=== PATIENT | female | born 1980 | race Caucasian/White ===

== ENCOUNTER 2016-06-06 19:03 | Emergency (ER) | payer MEDICAID, OTHER ==
[~2016-06-06] VITALS: Ht 160 cm; Wt 68.9 kg
[~2016-06-06 19:03] MED LIST: FLEXERIL PO; MONT10TA22 PO; NORCO PO; OMEP20TA20 PO
[2016-06-06 19:38] LABS: *BILIRUBIN,URIN NEGATIVE (NEGATIVE); *BLOOD, URINE 3+ (NEGATIVE); *CLARITY,URINE SLIGHTLY CLOUDY (CLEAR); *KETONES,URINE TRACE (NEGATIVE); *PROTEIN,URINE 1+ (NEGATIVE); LEUKOCYTE ESTERASE ,URINE 1+ (NEGATIVE); UGLUCOSE TRACE (NEGATIVE)
[2016-06-06 19:40] LABS: *URINE HCG, QUAL NEGATIVE (NEGATIVE)
[2016-06-06 19:51] LABS: *COLOR,URINE ORANGE (YELLOW); NITRITE, URINE POSITIVE (NEGATIVE)
[2016-06-06 19:53] LABS: BACTERIA,URINE FEW /HPF (NONE SEEN); MUCUS,URINE MODERATE /LPF (0-FEW); RBC,URINE 20-50 /HPF (0-3); SQUAMOUS EPITHELIAL CELL,UR FEW /HPF (NONE SEEN); WBC,URINE 20-50 /HPF (0-3)
[2016-06-06] MEDS ORDERED: IBUPROFEN 800 MG TABLET PO ONE (20:15)
[2016-06-06] MEDS ORDERED: AZITHROMYCIN 250 MG TABLET PO ONE (20:15)
[2016-06-06] MEDS ORDERED: ONDANSETRON ODT 4 MG TAB.RAPDIS SL ONE (20:15)
[2016-06-06] MEDS ORDERED: CEFTRIAXONE 500 MG VIAL IM ONE (20:15)
[2016-06-06] MEDS ORDERED: CEFTRIAXONE 500 MG VIAL ONE (20:30)
[2016-06-06] MEDS ORDERED: AZITHROMYCIN 250 MG TABLET ONE (20:30)
[2016-06-06] MEDS ORDERED: IBUPROFEN 800 MG TABLET ONE (20:30)
[2016-06-06] MEDS ORDERED: ONDANSETRON ODT 4 MG TAB.RAPDIS ONE (20:30)
[2016-06-06] MEDS ORDERED: HYDROCODONE/APAP 10-325 MG TABLET PO ONE (21:00)
--- NOTE | 2016-06-06 21:06 | NUR ---
Patient discharged to home in stable conditon. Written and verbal after care instructions given. Patient verbalizes understanding of instructions. ambulated from ER with stable gait. All belongins with patient.
[2016-06-06 21:07] VITALS: BP 131/81
--- NOTE | 2016-06-06 21:07 | NUR ---
Instructed not to drive. Patient will be driven home in private vehicle by family.
[2016-06-06] MEDS ORDERED: HYDROCODONE/APAP 10-325 MG TABLET ONE (21:11)
[2016-06-09 07:07] LABS: *CHLAMYDIA NAA Negative (Negative); *GC NAA Negative (Negative); *TRIC.VAG. NAA Positive (Negative)
== END 2016-06-06 21:08 | disposition home or self-care (01) ==
LOC: ER 19:03
DX: N10 Acute pyelonephritis (principal); Z88.8 Allergy status to other drugs, medicaments and biological substances; Z91.018 Allergy to other foods
CPT/HCPCS: 76770; 81001; 84703; 87086; 87491; 96372; 99285; A4663; J0696; Q0144; Q0162

== ENCOUNTER 2016-06-27 20:46 | Emergency (ER) | payer OTHER ==
[~2016-06-27] VITALS: Ht 165.1 cm; Wt 63.5 kg
[2016-06-27 20:59] LABS: *BILIRUBIN,URIN NEGATIVE (NEGATIVE); *BLOOD, URINE NEGATIVE (NEGATIVE); *CLARITY,URINE SLIGHTLY CLOUDY (CLEAR); *COLOR,URINE YELLOW (YELLOW); *KETONES,URINE NEGATIVE (NEGATIVE); *PROTEIN,URINE NEGATIVE (NEGATIVE); *UROBILINOGEN,URINE 0.2 E.U./dl (NORMAL); LEUKOCYTE ESTERASE ,URINE 1+ (NEGATIVE); NITRITE, URINE NEGATIVE (NEGATIVE); UGLUCOSE NEGATIVE (NEGATIVE)
[2016-06-27 21:03] LABS: *URINE HCG, QUAL NEGATIVE (NEGATIVE)
[2016-06-27 21:11] LABS: BACTERIA,URINE FEW /HPF (NONE SEEN); MUCUS,URINE MANY /LPF (0-FEW); RBC,URINE 0-3 /HPF (0-3); SQUAMOUS EPITHELIAL CELL,UR FEW /HPF (NONE SEEN); WBC,URINE 50-80 /HPF (0-3)
[2016-06-27] MEDS: HYDROCODONE/APAP 10-325 MG TABLET PO ONE (22:12)
[2016-06-27] MEDS: LEVOFLOXACIN 750 MG TABLET PO ONE (22:13)
--- NOTE | 2016-06-27 22:14 | NUR ---
Patient discharged to home in stable conditon. Written and verbal after care instructions given. Patient verbalizes understanding of instructions.
[2016-06-27] MEDS ORDERED: LEVOFLOXACIN 750 MG TABLET ONE (22:18)
[2016-06-27] MEDS ORDERED: HYDROCODONE/APAP 10-325 MG TABLET ONE (22:18)
== END 2016-06-27 22:14 | disposition home or self-care (01) ==
LOC: ER 20:46
DX: N39.0 Urinary tract infection, site not specified (principal)
CPT/HCPCS: 84703; A4663

== ENCOUNTER 2016-07-07 11:00 | Emergency (ER) | payer OTHER ==
[~2016-07-07] VITALS: Ht 167.6 cm; Wt 68.0 kg
[2016-07-07] MEDS ORDERED: PHENAZOPYRIDINE HCL 100 MG TABLET PO ONE (12:00)
[2016-07-07 12:01] LABS: *BILIRUBIN,URIN NEGATIVE (NEGATIVE); *BLOOD, URINE 1+ (NEGATIVE); *CLARITY,URINE CLEAR (CLEAR); *COLOR,URINE YELLOW (YELLOW); *KETONES,URINE NEGATIVE (NEGATIVE); *PROTEIN,URINE NEGATIVE (NEGATIVE); *UROBILINOGEN,URINE 0.2 E.U./dl (NORMAL); LEUKOCYTE ESTERASE ,URINE 3+ (NEGATIVE); NITRITE, URINE NEGATIVE (NEGATIVE); UGLUCOSE NEGATIVE (NEGATIVE)
[2016-07-07 12:03] LABS: *URINE HCG, QUAL NEGATIVE (NEGATIVE)
[2016-07-07 12:11] LABS: BACTERIA,URINE FEW /HPF (NONE SEEN); SQUAMOUS EPITHELIAL CELL,UR FEW /HPF (NONE SEEN); TRANSITIONAL EPI CELLS,URINE FEW /LPF (NONE SEEN)
[2016-07-07 12:12] LABS: WBC,URINE 20-50 /HPF (0-3)
[2016-07-07] MEDS ORDERED: PHENAZOPYRIDINE HCL 100 MG TABLET ONE (12:15)
[2016-07-07] MEDS ORDERED: ONDANSETRON ODT 4 MG TAB.RAPDIS SL ONE (12:30)
[2016-07-07] MEDS ORDERED: CEPHALEXIN MONOHYDRATE 500 MG CAPSULE PO ONE (12:30)
[2016-07-07] MEDS ORDERED: IBUPROFEN 800 MG TABLET PO ONE (12:30)
[2016-07-07] MEDS ORDERED: CEPHALEXIN MONOHYDRATE 500 MG CAPSULE ONE (12:37)
[2016-07-07] MEDS ORDERED: IBUPROFEN 800 MG TABLET ONE (12:37)
[2016-07-07] MEDS ORDERED: ONDANSETRON ODT 4 MG TAB.RAPDIS ONE (12:37)
[2016-07-07] MEDS ORDERED: MORPHINE SULFATE 2 MG/1 ML DISP.SYRIN IV ONE (13:00)
[2016-07-07] MEDS ORDERED: IV NORMAL SALINE 1000 ML BAG IV ONE (13:00)
[2016-07-07] MEDS ORDERED: CEFTRIAXONE 1 G in IV DEXTROSE 5% 50 ML IV ONE (13:00)
[2016-07-07] MEDS ORDERED: MORPHINE SULFATE 2 MG/1 ML DISP.SYRIN ONE (13:11)
[2016-07-07] MEDS ORDERED: CEFTRIAXONE 1 G VIAL ONE (13:12)
--- NOTE | 2016-07-07 13:58 | NUR ---
Patient discharged to home in stable conditon. Written and verbal after care instructions given. Patient verbalizes understanding of instructions.PT WALKS IN STEADY , PT NOT DRIVING
[2016-07-07 13:59] VITALS: BP 119/81
[2016-07-10 00:12] LABS: *CHLAMYDIA NAA Negative (Negative); *GC NAA Negative (Negative); *TRIC.VAG. NAA Positive (Negative)
== END 2016-07-07 14:00 | disposition home or self-care (01) ==
LOC: ER 11:00
DX: N10 Acute pyelonephritis (principal); Z88.8 Allergy status to other drugs, medicaments and biological substances; Z91.018 Allergy to other foods
CPT/HCPCS: 84703; 87086; 87491; A4663; J0696; J2270; J7030; Q0162

== ENCOUNTER 2016-07-09 19:44 | Inpatient (IN) | payer OTHER ==
[~2016-07-09] VITALS: Ht 160 cm; Wt 68.0 kg
[2016-07-09] MEDS ORDERED: HYDR-552 PO (20:30)
[2016-07-09] MEDS ORDERED: CEPH500C2 PO (20:30)
[2016-07-09] MEDS ORDERED: PHEN-705 PO (20:30)
--- NOTE | 2016-07-09 20:45 | NUR ---
Sent urine to lab.Physical assessment done.
[2016-07-09 20:56] LABS: *BLOOD, URINE 3+ (NEGATIVE); *CLARITY,URINE SLIGHTLY CLOUDY (CLEAR); *COLOR,URINE ORANGE (YELLOW); *KETONES,URINE 1+ (NEGATIVE); *PROTEIN,URINE 2+ (NEGATIVE); LEUKOCYTE ESTERASE ,URINE 3+ (NEGATIVE); UGLUCOSE TRACE (NEGATIVE)
[2016-07-09 20:59] LABS: *BILIRUBIN,URIN 1+ (NEGATIVE); NITRITE, URINE POSITIVE (NEGATIVE)
[2016-07-09] MEDS ORDERED: CEFTRIAXONE 1 G in IV DEXTROSE 5% 50 ML IV ONE (21:00)
[2016-07-09] MEDS ORDERED: IV NORMAL SALINE 1000 ML BAG IV ONE (21:00)
[2016-07-09 21:01] LABS: *URINE HCG, QUAL NEGATIVE (NEGATIVE)
[2016-07-09 21:03] LABS: BACTERIA,URINE FEW /HPF (NONE SEEN); RBC,URINE 50-80 /HPF (0-3); SQUAMOUS EPITHELIAL CELL,UR FEW /HPF (NONE SEEN)
--- NOTE | 2016-07-09 21:05 | NUR ---
Came from triage for UTI symptoms, pt stated that she had this symptoms since february 2016. She was just here last Friday for same problem. She was give antibiotics to take home but it seems not working, she was advice to come back for further symptoms. Seen by
[2016-07-09 21:10] LABS: BASOPHILS % (AUTO) 0.4 % (0.0-2.0); EOSINOPHILS # (AUTO) 0.1 K/uL (0.0-0.7); EOSINOPHILS % (AUTO) 1.7 % (0.0-7.0); HEMATOCRIT 34.6 % (37-47); HEMOGLOBIN 12.1 G/DL (12.0-16.0); LYMPHOCYTES # (AUTO) 2.4 K/UL (0.8-4.8); MEAN CORPUSCULAR HEMOGLOBIN 29.7 UUG (27.0-31.0); MEAN CORPUSCULAR HGB CONC 35 g/dL (32.0-37.0); MEAN CORPUSCULAR VOLUME 84.8 FL (81.0-99.0); MONOCYTES # (AUTO) 0.2 K/UL (0.1-1.30); MONOCYTES % (AUTO) 2.7 % (0.0-11.0); NEUTROPHILS # (AUTO) 6.1 K/UL (1.8-8.9); NEUTROPHILS % (AUTO) 68.2 % (38.5-71.5); PLATELET COUNT (AUTO) 338 K/UL (150-450); RED BLOOD CELL COUNT(AUTO) 4.08 MIL/UL (4.2-5.4); RED CELL DISTRIBUTION WIDTH 12.2 % (11.5-14.5); WHITE BLOOD COUNT (AUTO) 8.8 K/UL (4.0-11.2)
[2016-07-09 21:26] LABS: CREATININE 0.9 mg/dL (0.6-1.3); POTASSIUM 3.6 mmol/L (3.5-5.1)
[2016-07-09 21:31] LABS: ALBUMIN 4.4 g/dL (3.4-5.0); BILIRUBIN,DIRECT 0.1 mg/dL (0.0-0.2); BILIRUBIN,TOTAL 0.3 mg/dL (0.2-1.0); TOTAL PROTEIN, SERUM 8.2 g/dL (6.4-8.2)
[2016-07-09] MEDS ORDERED: IV NORMAL SALINE 250 ML IV ONE (21:40)
[2016-07-09] MEDS ORDERED: NORMAL SALINE FLUSH 10 ML DISP.SYRIN ONE (21:40)
[2016-07-09] MEDS ORDERED: IOHEXOL 300MG/ML 100 ML INFUS..BTL ONE (21:40)
[2016-07-09] MEDS ORDERED: CEFTRIAXONE 1 G VIAL ONE (21:58)
[2016-07-09] MEDS ORDERED: MORPHINE SULFATE 4 MG/1 ML DISP.SYRIN IV ONE (22:00)
[2016-07-09] MEDS ORDERED: KETOROLAC TROMETHAMINE 15 MG INJ IVP ONE (22:00)
--- NOTE | 2016-07-09 22:00 | NUR ---
Signed consent for CT of abdomen/Pelvis.
--- NOTE | 2016-07-09 22:10 | NUR ---
Left for CT
[2016-07-09] MEDS ORDERED: KETOROLAC TROMETHAMINE 15 MG INJ ONE (22:12)
[2016-07-09] MEDS ORDERED: MORPHINE SULFATE 4 MG/1 ML DISP.SYRIN ONE (22:13)
--- NOTE | 2016-07-09 22:25 | NUR ---
Came back for CT
--- NOTE | 2016-07-10 01:20 | NUR ---
Report to [facility]
[2016-07-10] MEDS ORDERED: CEFTRIAXONE 1 G in IV DEXTROSE 5% 50 ML IV SCH (01:30)
[2016-07-10] MEDS ORDERED: Z GUARD REMEDY PASTE 57 GM TUBE TOP PRN (01:30)
[2016-07-10] MEDS ORDERED: ACETAMINOPHEN 325 MG TABLET PO PRN (01:30)
[2016-07-10] MEDS ORDERED: MAGNESIUM HYDROXIDE 30 ML LIQUID UDC PO PRN (01:30)
[2016-07-10] MEDS ORDERED: HYDROCODONE/APAP 5-325MG TABLET PO PRN (01:30)
--- NOTE | 2016-07-10 01:30 | NUR ---
Transferred to Med surg room 203 via wheelchair w/ RN.
--- NOTE | 2016-07-10 02:00 | NUR ---
ADMITTED ALERTX4 PLINED O NAUSEA,ORIENTED TO FLOOR,IV STARTED ON LEFT ANTE CUBITAL GAUGE 20.COMPLAINED OF NAUSEA,ZOFRAN IVP GIVEN.
[2016-07-10] MEDS: IV 1/2NS 1000 ML 1,000 ML IV PRN ×3 (02:56→20:36)
[2016-07-10] MEDS: ONDANSETRON 4 MG/2 ML VIAL IV PRN (03:11)
[2016-07-10] MEDS ORDERED: ONDANSETRON 4 MG/2 ML VIAL ONE (03:21)
[2016-07-10 04:43] VITALS: BP 96/56
[2016-07-10] MEDS ORDERED: KETOROLAC TROMETHAMINE 15 MG INJ IVP ONE ×2 (06:30→13:45)
[2016-07-10] MEDS ORDERED: KETOROLAC TROMETHAMINE 15 MG INJ ONE (06:36)
--- NOTE | 2016-07-10 06:56 | NUR ---
COMPLAINED OF ABDOMINAL PAIN,REFUSED [facility] WANTS TORADOL CALLED DR TURNER AND ORDERED TORADOL X1IVP. URINE OUTPUT ORANGE IN COLOR WITH SMALL BLOOD CLOTS.
--- NOTE | 2016-07-10 07:00 | NUR ---
PT IS LAYING IN BED. NO S/S OF RESPIRATORY DISTRESS NOTED. ALL SAFETY NEEDS ARE MET. IV INTACT/PATENT. WILL CONTINUE TO MONITOR.
[2016-07-10] MEDS: PANTOPRAZOLE SODIUM 40 MG TABLET.DR PO SCH (07:55)
--- NOTE | 2016-07-10 09:18 | NUR ---
PT TAKES SINGULAIR 10MG AT BEDTIME. OK TO PUT IN ORDER PER DR. ALMAGUER
[2016-07-10 11:08] VITALS: BP 98/66
--- NOTE | 2016-07-10 12:26 | NUR ---
TORADOL WAS GIVEN BY NOC NURSE, REMOVED FROM [facility] IN ORDER TO RETRIEVE BETTER VISUAL OF DOCTOR'S ORDERS
[2016-07-10] MEDS ORDERED: KETOROLAC TROMETHAMINE 15 MG INJ IVP PRN (13:15)
[2016-07-10] MEDS: PHENAZOPYRIDINE HCL 100 MG TABLET PO SCH ×2 (13:15→16:42)
[2016-07-10 15:09] VITALS: BP 99/63
--- NOTE | 2016-07-10 18:50 | NUR ---
PT IS LAYING IN BED COMFORTABLY. NO S/S OF RESPIRATORY DISTRESS NOTED. IV INTACT/PATENT INFUSING FLUIDS. ALL SAFETY NEEDS ARE MET.
--- NOTE | 2016-07-10 19:50 | NUR ---
RECEIVED PT IN BED AWAKE, ALERT AND ORIENTEDX4, IN NO ACUTE DISTRESS. DENIES SOB. ON ROOM AIR SATURATION WNL. REPORTS PAIN AT TOLERABLE LEVEL AT THIS MOMENT. ALL NEEDS MET AT THIS TIME. CALL LIGHT IN REACH AND SAFETY MEASURES IN PLACE. WILL CONTINUE TO MONITOR.
[2016-07-10 20:00] VITALS: BP 104/70
[2016-07-10] MEDS: MONTELUKAST SODIUM 10 MG TABLET PO SCH ×2 (20:35→21:00)
[2016-07-10] MEDS: CEFTRIAXONE 1 G in IV DEXTROSE 5% 50 ML IV SCH (20:35)
--- NOTE | 2016-07-10 21:00 | NUR ---
2100 SINGULAIR 10MG GIVEN ORDERED, THERE'S A REPEATED DOSE/ORDER, REPEATED DOSE NOT GIVEN, PHARMACY MADE AWARE OF DOUBLE ORDER, STATED THEY WILL CORRECT. WILL CONTINUE TO MONITOR.
[2016-07-10] MEDS: ZOLPIDEM 5 MG TABLET PO PRN (21:34)
--- NOTE | 2016-07-10 21:34 | NUR ---
PT C/O INSOMNIA, MD ALMAGUER MADE AWARE WITH NEW ORDER FOR AMBIEN 5MG PO QHSPRN, GIVEN AT THIS TIME, WILL REASSESS. WILL CONTINUE MONITORING.
[2016-07-10] MEDS ORDERED: ZOLPIDEM 5 MG TABLET ONE (21:41)
[2016-07-11] MEDS: IV 1/2NS 1000 ML 1,000 ML IV PRN (05:47)
[2016-07-11 06:17] VITALS: BP 103/61
[2016-07-11] MEDS: PANTOPRAZOLE SODIUM 40 MG TABLET.DR PO SCH (06:30)
--- NOTE | 2016-07-11 06:31 | NUR ---
END OF SHIFT NOTE: PT SLEPT WELL PER SHIFT, MED EFFECTIVE. NO ACUTE DISTRESS NOTED. NO C/O PAIN. NO S/S OF RESPIRATORY DISTRESS OBSERVED. O2 SAT WNL ON RA. BRP. ALL SAFETY NEEDS MET. CALL LIGHT IN REACH. CONTINUE PLAN OF CARE.
[2016-07-11 06:38] LABS: CALCIUM 8.1 mg/dL (8.5-10.1); CREATININE 0.7 mg/dL (0.6-1.3); MAGNESIUM 1.7 mg/dL (1.8-2.4); PHOSPHOROUS 4.1 mg/dL (2.5-4.9); POTASSIUM 4.1 mmol/L (3.5-5.1)
[2016-07-11 06:45] LABS: BASOPHILS % (AUTO) 0.4 % (0.0-2.0); EOSINOPHILS # (AUTO) 0.2 K/uL (0.0-0.7); EOSINOPHILS % (AUTO) 3.2 % (0.0-7.0); HEMOGLOBIN 10.5 G/DL (12.0-16.0); LYMPHOCYTES # (AUTO) 2.4 K/UL (0.8-4.8); LYMPHOCYTES % (AUTO) 40.2 % (20.5-51.5); MEAN CORPUSCULAR HEMOGLOBIN 28.6 UUG (27.0-31.0); MEAN CORPUSCULAR HGB CONC 34 g/dL (32.0-37.0); MONOCYTES # (AUTO) 0.3 K/UL (0.1-1.30); NEUTROPHILS % (AUTO) 51.2 % (38.5-71.5); PLATELET COUNT (AUTO) 263 K/UL (150-450)
[2016-07-11 06:58] LABS: HEMATOCRIT 31.1 % (37-47); RED BLOOD CELL COUNT(AUTO) 3.66 MIL/UL (4.2-5.4); WHITE BLOOD COUNT (AUTO) 5.9 K/UL (4.0-11.2)
[2016-07-11] MEDS ORDERED: PANTOPRAZOLE SODIUM 40 MG TABLET.DR PO SCH (07:00)
[2016-07-11] MEDS: PHENAZOPYRIDINE HCL 100 MG TABLET PO SCH ×3 (09:00→17:00)
[2016-07-11 11:00] VITALS: BP 101/70
[2016-07-11 15:06] VITALS: BP 99/69
[2016-07-11] MEDS: MAGNESIUM SULFATE/D5W 100 ML IV SCH ×2 (15:29→15:37)
[2016-07-11] MEDS: MONTELUKAST SODIUM 10 MG TABLET PO SCH ×2 (18:36→20:23)
--- NOTE | 2016-07-11 18:49 | NUR ---
PATIENT BEEN IN BED RESTING AND WATCHING TV. NO S/S OF DISTRESS NOTED DURING THE ZACHERY. C/O OF MILD FLANK PAIN, BUT DID NOT WANT PAIN MEDICATION. PATIENTS STATED THAT HER URINE HAVE BEEN BETTER, CLEAR AND YELLOW WITHOUT BLOOD CLOTS. REFUSED PYRIDIUM THE WHOLE DAY. IV STILL INTACT. SHE WANTED TO CHANGED HER IV TO A DIFFERENT PLACE, BUT WE COULD NOT GET ONE ON THE HAND, AFTER THAT SHE REFUSED TO HAVE ANOTHER ONE. AMBULATED AROUND THE UNIT, STEADY GAIT. SAFETY AND COMFORT PROVIDED BY STAFF. WILL CONTINUE MONITORING.
[2016-07-11 19:00] VITALS: BP 109/68
--- NOTE | 2016-07-11 19:30 | NUR ---
RECEIVED PT IN ROOM WATCHING TV, NO ACUTE DISTRESS NOTED. REPORTS PAIN AT TOLERABLE LEVEL. NO SOB NOTED/REPORTED. IV INTACT AND PATENT, IVF INFUSING ORDERED. ALL NEEDS MET AT THIS TIME. CALL LIGHT WITHIN REACH. WILL CONTINUE TO MONITOR.
[2016-07-11] MEDS: CEFTRIAXONE 1 G in IV DEXTROSE 5% 50 ML IV SCH (20:15)
[2016-07-11] MEDS: ONDANSETRON 4 MG/2 ML VIAL IV PRN (20:15)
--- NOTE | 2016-07-11 21:00 | NUR ---
PATIENT C/O NAUSEA, NO EMESIS, PRN ZOFRAN GIVEN ORDERED, WITH GOOD RELIEF. NAUSEA SUBSIDED PER PT'S REPORT. 2100 SINGULAIR NOT GIVEN, PER PT TAKES 10MG DAILY, SINGULAIR WAS GIVEN AT 1836, SEE eMAR. WILL CONTINUE TO MONITOR.
[2016-07-11] MEDS: ZOLPIDEM 5 MG TABLET PO PRN (21:14)
[2016-07-12] MEDS: IV 1/2NS 1000 ML 1,000 ML IV PRN (03:19)
[2016-07-12 06:00] VITALS: BP 118/76
[2016-07-12] MEDS: PANTOPRAZOLE SODIUM 40 MG TABLET.DR PO SCH (06:15)
[2016-07-12 06:34] LABS: CALCIUM 8.2 mg/dL (8.5-10.1); CREATININE 0.7 mg/dL (0.6-1.3); POTASSIUM 4.1 mmol/L (3.5-5.1)
[2016-07-12 07:59] LABS: BASOPHILS % (AUTO) 0.3 % (0.0-2.0); EOSINOPHILS # (AUTO) 0.2 K/uL (0.0-0.7); EOSINOPHILS % (AUTO) 3.6 % (0.0-7.0); HEMATOCRIT 32.4 % (37-47); HEMOGLOBIN 10.9 G/DL (12.0-16.0); LYMPHOCYTES # (AUTO) 2.5 K/UL (0.8-4.8); LYMPHOCYTES % (AUTO) 37.4 % (20.5-51.5); MEAN CORPUSCULAR HEMOGLOBIN 28.8 UUG (27.0-31.0); MEAN CORPUSCULAR HGB CONC 34 g/dL (32.0-37.0); MEAN CORPUSCULAR VOLUME 85.9 FL (81.0-99.0); MONOCYTES # (AUTO) 0.4 K/UL (0.1-1.30); MONOCYTES % (AUTO) 5.6 % (0.0-11.0); NEUTROPHILS # (AUTO) 3.7 K/UL (1.8-8.9); NEUTROPHILS % (AUTO) 53.1 % (38.5-71.5); PLATELET COUNT (AUTO) 271 K/UL (150-450); RED BLOOD CELL COUNT(AUTO) 3.78 MIL/UL (4.2-5.4); RED CELL DISTRIBUTION WIDTH 12.2 % (11.5-14.5); WHITE BLOOD COUNT (AUTO) 6.8 K/UL (4.0-11.2)
[2016-07-12] MEDS: PHENAZOPYRIDINE HCL 100 MG TABLET PO SCH ×2 (09:00→13:39)
[2016-07-12] MEDS: ONDANSETRON 4 MG/2 ML VIAL IV PRN (09:22)
--- NOTE | 2016-07-12 10:00 | NUR ---
PATIENT IN BED RESTING. NO S/S OF DISTRESS NOTED. C/O OF NAUSEA, MEDICATED ORDERED. SHE STATED THAT SHE STARTED HAVING DYSURIA AND FEELING OFF TODAY. V/S WITH HER BASELINE. WILL CONTINUE MONITORING DURING THE DAY.
[2016-07-12 11:14] VITALS: BP 100/56
[2016-07-12] MEDS ORDERED: MORPHINE SULFATE 2 MG/1 ML DISP.SYRIN IV PRN (13:30)
--- NOTE | 2016-07-12 15:17 | NUR ---
PATIENT HAVE BEEN DISCHARGE HOME IN SAFE AND STABLE CONDITIONS. STILL C/O OF BURNING URINATION. AM MEDICATION WAS REFUSED. [facility] AND [facility] CHARGE NURSE NOTIFIED ME THAT PATIENT SUDDENLY C/O OF FEELING DIZZY, AND BECAME STIFF, STATING HAVING PARTIAL SEIZURES. DR. ALMAGUER AWARE OF THE SITUATION. LAB WORK OUT IS WNL. DC INSTRUCTIONS WERE EXPLAINED AND A COPY WAS PROVIDED. IV AND ID REMOVED. SAFETY AND COMFORT PROVIDED BY STAFF. PATIENT WAS TAKEN BY CONSTANTIN KUNZ TO HER PRIVATE CAR WITH HER FRIEND.
[2016-07-12 15:28] VITALS: BP 128/83
== END 2016-07-12 14:40 | disposition home or self-care (01) | DRG 463 ==
LOC: ER 19:45 → MED 07-10 01:20
PROVIDERS: ADMIT Internal Medicine; ATTEND Internal Medicine
DX: N39.0 Urinary tract infection, site not specified (principal); R56.9 Unspecified convulsions; G43.909 Migraine, unspecified, not intractable, without status migrainosus; M19.90 Unspecified osteoarthritis, unspecified site; M79.7 Fibromyalgia; Z87.442 Personal history of urinary calculi; M48.00 Spinal stenosis, site unspecified; Z87.440 Personal history of urinary (tract) infections; R93.5 Abnormal findings on diagnostic imaging of other abdominal regions, including retroperitoneum; Z79.899 Other long term (current) drug therapy; Z82.49 Family history of ischemic heart disease and other diseases of the circulatory system
CPT/HCPCS: 36415; 83605; 83690; 83735; 84100; 84703; 85025; 87040; 87086; 87491; J0696; J1885; J2270; J2405; J3475; J3490; J7030; J7050; J7060; Q9967

== ENCOUNTER 2017-12-02 10:38 | Emergency (ER) | payer OTHER ==
[~2017-12-02] VITALS: Ht 160 cm; Wt 63.5 kg
[~2017-12-02 10:38] MED LIST changes: +HYDR-552 PO; +PHEN-705 PO
[2017-12-02 11:34] LABS: *BILIRUBIN,URIN NEGATIVE (NEGATIVE); *BLOOD, URINE NEGATIVE (NEGATIVE); *CLARITY,URINE SLIGHTLY CLOUDY (CLEAR); *COLOR,URINE YELLOW (YELLOW); *KETONES,URINE NEGATIVE (NEGATIVE); *PROTEIN,URINE NEGATIVE (NEGATIVE); *UROBILINOGEN,URINE 0.2 E.U./dl (NORMAL); LEUKOCYTE ESTERASE ,URINE 1+ (NEGATIVE); NITRITE, URINE NEGATIVE (NEGATIVE); UGLUCOSE NEGATIVE (NEGATIVE)
[2017-12-02 11:36] LABS: *URINE HCG, QUAL NEGATIVE (NEGATIVE)
[2017-12-02 12:05] LABS: RBC,URINE 0-3 /HPF (0-3)
[2017-12-02 12:06] LABS: BACTERIA,URINE MANY /HPF (NONE SEEN)
[2017-12-02 12:07] LABS: SQUAMOUS EPITHELIAL CELL,UR FEW /HPF (NONE SEEN)
--- NOTE | 2017-12-02 12:56 | NUR ---
PT WAS EVALUATED BY DR BATRES. PT WAS D/C TO HOME. D/C INSTRUCTIONS GIVEN TO THE PT.
[2017-12-02 12:57] VITALS: BP 130/68
== END 2017-12-02 13:00 | disposition home or self-care (01) ==
LOC: ER 10:38
DX: J32.9 Chronic sinusitis, unspecified (principal); Z88.8 Allergy status to other drugs, medicaments and biological substances; Z91.018 Allergy to other foods; Z91.011 Allergy to milk products
CPT/HCPCS: 70486; 81001; 84703; 99285; A4663

== ENCOUNTER 2021-06-12 20:51 | Emergency (ER) | payer OTHER ==
[~2021-06-12] VITALS: Ht 162.6 cm; Wt 65.8 kg
[~2021-06-12 20:51] MED LIST changes: +HYDR-4384 PO; -HYDR-552 PO
--- NOTE | 2021-06-12 21:30 | NUR ---
Patient walked into ER c/o throat discomfort, SOB, nasal congestion and intermitent fever x2 days
[2021-06-12 22:20] LABS: CREATININE 0.8 mg/dL (0.6-1.3); MAGNESIUM 2.1 mg/dL (1.8-2.4); POTASSIUM 4.1 mmol/L (3.5-5.1)
[2021-06-12 22:33] LABS: HEMATOCRIT 32.4 % (31.2-41.9); MEAN CORPUSCULAR VOLUME 87.7 fL (75.5-95.3); PLATELET COUNT (AUTO) 251 K/uL (179-408)
[2021-06-13] MEDS ORDERED: OXYC-128 PO (01:24)
--- NOTE | 2021-06-13 01:53 | NUR ---
Patient discharged to home in stable condition. Written and verbal after care instructions given. Patient verbalizes understanding of instructions. Stressed follow up or return to ER for worsening s/s. Patient is A/Ox4, no CP, no SOB, no distress noted.
[2021-06-13 01:56] VITALS: BP 132/72
== END 2021-06-13 01:11 | disposition home or self-care (01) ==
LOC: ER 20:57
DX: J06.9 Acute upper respiratory infection, unspecified (principal); M79.7 Fibromyalgia; Z88.1 Allergy status to other antibiotic agents; Z91.030 Bee allergy status; Z91.011 Allergy to milk products; Z91.018 Allergy to other foods
CPT/HCPCS: 36415; 83735; 85025; 87400; A4663